=== PATIENT | female | born 1990 | race Caucasian/White ===

== ENCOUNTER 2016-11-11 19:44 | Outpatient (CLI) | payer MEDICAID, OTHER ==
[~2016-11-11] VITALS: Ht 154.9 cm; Wt 84.0 kg
[~2016-11-11 19:44] MED LIST: PRENATAL MEDS
[2016-11-11 20:32] VITALS: BP 127/79; PULSE 108; RESP 18
[2016-11-11] MEDS ORDERED: FERR134T PO (20:37)
[2016-11-11] MEDS ORDERED: PRENAT PO (20:37)
[2016-11-11] MEDS ORDERED: LACTATED RINGER'S 1,000 ML IV SCH (20:49)
[2016-11-11] MEDS ORDERED: BUTORPHANOL 2 MG INJ IV PRN (21:00)
[2016-11-11] MEDS ORDERED: IBUPROFEN 600 MG TAB PO PRN (21:00)
[2016-11-11] MEDS ORDERED: CARBOPROST 250 MCG INJ IM PRN (21:00)
[2016-11-11] MEDS ORDERED: METHYLERGONOVINE 0.2 MG INJ IM PRN (21:00)
[2016-11-11] MEDS ORDERED: MISOPROSTOL 200 MCG TAB PR PRN (21:00)
[2016-11-11] MEDS ORDERED: LIDOCAINE 1% (MPF) 30 ML INJ INJ PRN (21:00)
[2016-11-11] MEDS ORDERED: LACTATED RINGER'S 1,000 ML IV PRN (21:00)
[2016-11-11] MEDS ORDERED: OXYTOCIN 30 UNITS/LR 500 ML IV PRN (21:00)
[2016-11-11] MEDS ORDERED: OXYTOCIN 30 UNITS/LR 500 ML IV SCH ×2 (21:00)
[2016-11-11 21:37] LABS: ADD UMIC YES; URINE BILIRUBIN (Dip) NEGATIVE (NEGATIVE); URINE BLOOD (Dip) 1+ (NEGATIVE); URINE COLOR YELLOW (YELLOW); URINE GLUCOSE (Dip) NEGATIVE (NEGATIVE); URINE KETONES (Dip) TRACE (NEGATIVE); URINE LEUKOCYTE ESTERASE (Dip) NEGATIVE (NEGATIVE); URINE NITRITE (Dip) NEGATIVE (NEGATIVE); URINE TOTAL PROTEIN (Dip) NEGATIVE (NEGATIVE); URINE UROBILINOGEN (Dip) 0.2 E.U./dL (0.1-1.0)
[2016-11-11 21:54] LABS: BACTERIA,URINE MANY; SQUAMOUS EPITHELIAL CELL,UR MODERATE
[2016-11-11] MEDS ORDERED: TERBUTALINE 1 MG/ML INJ SC ONE (22:00)
--- NOTE | 2016-11-12 00:16 | QN ---
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 A1 with an IUP at 34w5d with c/o cramping and pelvic pressure for a few hours. No vaginal bleeding or leaking. PMHx: Gallstones. Anemia. PSHx: none. NKDA. BP 127/79 T= 99.0 NST:baseline 130-140 bpm with accels to 170 bpm. No decels. UC's q 10 minutes at most. U/A: not a clean catch with moderate epithelial cells and +bacteria. Specific gravity 1.025 and urine was dark. CX: closed/thick/high. After 3 large pitchers of water and a dose of SubQ terbutaline the pt reports feeling much better and is ready for d/c. A: IUP at 34w5d. False labor. P: D/C home. Encouraged to drink more water. Reviewed labor precautions with pt. PRASAD MAGAÑA MD Nov 12, 2016 00:16
--- NOTE | 2016-11-12 00:22 | TRIAGE ---
OB Triage Datetime Report Generated by CPN: 11/12/2016 00:22 Datetime: 11/11/2016 22:50 Labor Evaluation Frequency: q20-30 min Monitor Mode: External Quality: Mild Pattern: Normal: <= 5 Contractions in 10 Minutes Resting Tone [place]: Relaxed Heart Rate FHR Baseline Rate: 140 Monitor Mode: External US FHR Baseline Changes: No Baseline Change Variability: Moderate 6-25 bpm Accelerations: 15X15 Decelerations: None Category: Category I Pain Assessment Pain Scale: 5 Pain Presence: Intermittent Pain Type: Cramping Pain Location: Abdomen Pain Assessment Comments: Pt states she's feeling somewhat better Datetime: 11/11/2016 21:35 Quality: Mild Pattern: Normal: <= 5 Contractions in 10 Minutes Resting Tone [place]: Relaxed Heart Rate FHR Baseline Rate: 135 Monitor Mode: External US FHR Baseline Changes: No Baseline Change Variability: Moderate 6-25 bpm Accelerations: 15X15 Decelerations: None Category: Category I Datetime: 11/11/2016 20:50 Labor Evaluation Frequency: q30 Quality: Mild Pattern: Normal: <= 5 Contractions in 10 Minutes Resting Tone [place]: Relaxed Heart Rate FHR Baseline Rate: 140 Monitor Mode: External US FHR Baseline Changes: No Baseline Change Variability: Moderate 6-25 bpm Accelerations: 15X15 Decelerations: None Category: Category I Vaginal Exam Dilatation (cms): 0.0 Effacement (%): 0 Station: -4 Exam By: Elle Brock Membrane Status: Intact Vaginal Bleeding: None Cervix, Consistency: Moderate Cervix, Position: Posterior Datetime: 11/11/2016 20:35 Labor Evaluation Frequency: toco replaced Heart Rate FHR Baseline Rate: 130 Monitor Mode: External US FHR Baseline Changes: No Baseline Change Variability: Moderate 6-25 bpm Accelerations: 15X15 Decelerations: None Category: Category I Datetime: 11/11/2016 20:03 Time of Arrival: 11/11/2016 19:39 EGA: 34.5 Arrived By: Wheelchair Arrived From: Home Chief Complaint: w/ c/o cramping and pelvic pressure. Denies hx problems this Movement: Present Contractions: Irregular Time Contractions Began: 11/11/2016 14:40 Contractions: [id number] Rupture of Membranes: Denies Vaginal Bleeding: None Vaginal Discharge: Denies Recent Sexual Intercouse: Denies Abdominal Trauma: Not Applicable Patient Complaints: Cramping; Back Pain Time Provider Notified: 11/11/2016 21:35 Provider Notified: Dr Reiche Initial Plan: EFM Datetime: 11/11/2016 19:54 Maternal Assessment Level of Consciousness: Fully Conscious Headache: Denies Blurred Vision: No Nausea/Vomiting: Denies RUQ Epigastric Pain: Denies Facial Edema: None Labor Evaluation Frequency: placed Monitor Mode: External Resting Tone [place]: Relaxed Monitor Mode: External US Comments: FHT 140 Comments: FHT 135 Pain Assessment Pain Scale: 6 Pain Presence: Intermittent Pain Type: Cramping Pain Location: Abdomen
== END 2016-11-12 00:12 | disposition home or self-care (01) ==
LOC: OBT 19:44 → L-D 19:44 → OBT 11-12 00:12
PROVIDERS: ATTEND Obstetrics & Gynecology
DX: O60.03 Preterm labor without delivery, third trimester (principal); Z3A.34 34 weeks gestation of pregnancy
CPT/HCPCS: 81001; 96372; J3105; Z7500; 81003; G0463; J7120

== ENCOUNTER 2016-12-17 08:41 | Inpatient (IN) | payer OTHER ==
[2016-12-17] VITALS (10 sets, daily range): BP systolic 100–161; BP diastolic 51–90; PULSE 71–99; RESP 17–19; Ht 154.9 cm; Wt 85.8 kg
[~2016-12-17] VITALS: Ht 154.9 cm; Wt 85.8 kg
[~2016-12-17 08:41] MED LIST changes: +FERR134T PO; +PRENAT PO; -PRENATAL MEDS
[2016-12-17] MEDS ORDERED: AMPICILLIN 2 GM/NS (PMX) 100 ML IV ONE (10:00)
[2016-12-17] MEDS ORDERED: CARBOPROST 250 MCG INJ IM PRN ×2 (10:00→18:30)
[2016-12-17] MEDS ORDERED: METHYLERGONOVINE 0.2 MG INJ IM PRN ×2 (10:00→18:30)
[2016-12-17] MEDS ORDERED: MINERAL OIL LIGHT 10 ML VIAL TOP ONE (10:00)
[2016-12-17] MEDS ORDERED: LIDOCAINE 1% (MPF) 30 ML INJ INJ PRN (10:00)
[2016-12-17] MEDS ORDERED: MISOPROSTOL 200 MCG TAB PR PRN ×2 (10:00→18:30)
[2016-12-17] MEDS ORDERED: IBUPROFEN 600 MG TAB PO PRN (10:00)
[2016-12-17] MEDS ORDERED: OXYTOCIN 30 UNITS/LR 500 ML IV SCH ×2 (10:00)
[2016-12-17] MEDS ORDERED: BUTORPHANOL 2 MG INJ IV PRN (10:00)
[2016-12-17] MEDS ORDERED: OXYTOCIN 30 UNITS/LR 500 ML IV PRN ×2 (10:00→18:30)
[2016-12-17 10:05] LABS: ADD SCAN DIFF NO
[2016-12-17 10:12] LABS: BASOPHILS % 0.3 % (0.0-2.0); EOSINOPHILS # 0.1 10^3/ul (0.0-0.5); EOSINOPHILS % 1.6 % (0.0-7.0); HEMATOCRIT 32.4 % (37.0-47.0); HEMOGLOBIN 10.5 g/dl (12.0-16.0); LYMPHOCYTES # 1.7 10^3/ul (0.8-2.9); LYMPHOCYTES % 24.6 % (15.0-51.0); MEAN CORPUSCULAR HEMOGLOBIN 28.4 pg (29.0-33.0); MEAN CORPUSCULAR HGB CONC 32.4 g/dl (32.0-37.0); MEAN CORPUSCULAR VOLUME 87.6 fl (82.0-101.0); MEAN PLATELET VOLUME 10.3 fl (7.4-10.4); MONOCYTE # 0.6 10^3/ul (0.3-0.9); MONOCYTES % 8.1 % (0.0-11.0); NEUTROPHIL # 4.4 10^3/ul (1.6-7.5); NEUTROPHILS % 64.7 % (39.0-77.0); PLATELET COUNT 255 10^3/UL (140-415); WHITE BLOOD COUNT 6.8 10^3/ul (4.8-10.8)
[2016-12-17] MEDS: LACTATED RINGER'S 1,000 ML IV SCH ×2 (10:23→15:16)
[2016-12-17 10:56] LABS: INR 0.89; PT RATIO 0.9
[2016-12-17 10:57] LABS: PARTIAL THROMBOPLASTIN TIME 25.9 Sec (25.0-35.0)
[2016-12-17] MEDS ORDERED: LACTATED RINGER'S 1,000 ML IV PRN (12:00)
[2016-12-17] MEDS ORDERED: AMPICILLIN 1 GM/NS (PMX) 50 ML IV SCH (14:00)
[2016-12-17] MEDS ORDERED: BUTORPHANOL 2 MG INJ IV ONE (17:00)
--- NOTE | 2016-12-17 17:40 | LDN ---
Date/Time of Note Date/Time of Note DATE: 12/17/16 TIME: 17:38 Delivery Summary of a viable over intact perineum Weeks of Gestation 40 Placenta Delivered: Spontaneously, Intact & Complete Meconium: none Episiotomy: No Anesthesia type: None Estimated blood loss: 300 Sponge & Needle done & correct: Yes All needle counts correct: Yes Any foreign bodies felt in the: No Problems: Delivery Information Sex Infant Sex: female Apgars 1 Minute: 9 5 Minute: 9 Suctioning Nose & mouth suctioned at damaris: Yes Delee suction performed: No Umbilical Cord Umbilical cord with: 3 Vessels Cord presentations: no nuchal cord Cord Blood was obtained: Yes Mother & Baby Disposition Disposition Mom & Baby to Maternity; Good: Yes (mother and baby were recovered in good condition ) RENATE LARA MD Dec 17, 2016 17:40
--- NOTE | 2016-12-17 17:44 | HP ---
Date/Time of Note Date/Time of Note DATE: 12/17/16 TIME: 17:41 OB - History Hx of Present Free Text/Dictation admitted in active labor at term Chief Complaint: labor pains Last Menstrual Period: Mar 13, 2016 Estimated Due Date: Dec 19, 2016 : 5 Para: 3 Spontaneous : 1 Care: Good Care Ultrasounds: Normal mid trimester US Obstetrical Complications: None Medical Complications: None Past Family/Social History * Past Medical, Surgical, Family and Obstetric Histories reviewed from chart. Blood Type: B+ Rubella: immune RPR/VDRL: Negative GBS Status: Negative HBsAG: Negative OB Admission Exam Vital Signs Vital Signs Vital Signs Date Time Temp Pulse Resp B/P Pulse Ox O2 Delivery O2 Flow Rate FiO2 12/17/16 17:39 98.3 74 17 100/52 Room Air 12/17/16 08:47 99 Physical Exam HEENT: WNL Heart: Rhythm Normal Lungs: Clear, Equal Abdomen: WNL Extremities: Normal Reflexes: Normal Cervical Dilatation: 5cm Effacement: 100% Station: -3 Membranes: Intact Heart Rate: 140's Accelerations: Accelerations Present Decelerations: No Decelerations Varibility: Marked Contractions on Admission: < 5 Minutes Apart Date/Time Contractions Began: 12/17/2016 0700 AM Frequency of Contractions: q5 Duration: >60 seconds Intensity: Moderate Last 72 hours Lab Results CBC & BMP 12/17/16 09:00 OB Assessment/Plan Reason for admission: active labor Other Assessment: term gestation Other plan: proceed with labor RENATE LARA MD Dec 17, 2016 17:44
[2016-12-17] MEDS ORDERED: BENZOCAINE 20% 56 ML SPRAY TOP PRN (18:30)
[2016-12-17] MEDS ORDERED: ACETAMINOPHEN/CODEINE #3 TAB PO PRN ×2 (18:30)
[2016-12-17] MEDS ORDERED: WITCH HAZEL/GLYCERIN PAD PR PRN (18:30)
[2016-12-17] MEDS ORDERED: DIBUCAINE 1% 30 GM OINT PR PRN (18:30)
[2016-12-17] MEDS ORDERED: ZOLPIDEM 5 MG TAB PO PRN (18:30)
[2016-12-17] MEDS ORDERED: LANOLIN 7 GM TUBE TOP PRN (18:30)
[2016-12-17] MEDS: LACTATED RINGER'S 1,000 ML IV* SCH (19:47)
[2016-12-17] MEDS: MAGNESIUM HYDROXIDE 30ML CUP PO SCH (21:18)
[2016-12-17] MEDS: SENNA/DOCUSATE NA (8.6MG/50MG) TAB PO SCH (21:18)
[2016-12-17] MEDS: IBUPROFEN 600 MG TAB PO SCH (23:56)
[2016-12-18] VITALS (28 sets, daily range): BP systolic 114–139; BP diastolic 52–77; PULSE 77–104; RESP 14–28
[2016-12-18] MEDS: LACTATED RINGER'S 1,000 ML IV* SCH ×3 (02:25→11:26)
[2016-12-18] MEDS: IBUPROFEN 600 MG TAB PO SCH ×4 (05:30→23:30)
[2016-12-18] MEDS ORDERED: CEFAZOLIN 1 GM INJ ONE (07:00)
[2016-12-18 08:03] LABS: ADD SCAN DIFF NO
[2016-12-18 08:08] LABS: BASOPHILS % 0.2 % (0.0-2.0); EOSINOPHILS # 0.1 10^3/ul (0.0-0.5); EOSINOPHILS % 1.3 % (0.0-7.0); HEMATOCRIT 23.5 % (37.0-47.0); HEMOGLOBIN 7.8 g/dl (12.0-16.0); LYMPHOCYTES # 2.6 10^3/ul (0.8-2.9); LYMPHOCYTES % 30.4 % (15.0-51.0); MEAN CORPUSCULAR HEMOGLOBIN 29.7 pg (29.0-33.0); MEAN CORPUSCULAR HGB CONC 33.2 g/dl (32.0-37.0); MEAN CORPUSCULAR VOLUME 89.4 fl (82.0-101.0); MEAN PLATELET VOLUME 9.9 fl (7.4-10.4); MONOCYTE # 0.8 10^3/ul (0.3-0.9); MONOCYTES % 9.1 % (0.0-11.0); NEUTROPHIL # 4.9 10^3/ul (1.6-7.5); NEUTROPHILS % 58.3 % (39.0-77.0); PLATELET COUNT 215 10^3/UL (140-415); RED BLOOD COUNT 2.63 10^6/ul (4.20-5.40); RED CELL DISTRIBUTION WIDTH 14.1 % (11.5-14.5); WHITE BLOOD COUNT 8.5 10^3/ul (4.8-10.8)
[2016-12-18] MEDS: MAGNESIUM HYDROXIDE 30ML CUP PO SCH ×2 (09:00→21:00)
[2016-12-18] MEDS: SENNA/DOCUSATE NA (8.6MG/50MG) TAB PO SCH ×2 (09:00→21:00)
--- NOTE | 2016-12-18 14:10 | PN ---
Date/Time of Note Date/Time of Note DATE: 12/18/16 TIME: 14:09 Assessment/Plan VTE Prophylaxis VTE Prophylaxis Intervention: ambulation Lines/Catheters IV Catheter Type (from [email or web address] Peripheral IV Assessment/Plan Assessment/Plan PPD # 1 S/P vaginal delivery desires sterilization will proceed with BTL Subjective 24 Hr Interval Summary Free Text/Dictation desires BTL Constitutional: improved, no complaints Eyes: no complaints ENT: no complaints Respiratory: no complaints Cardiovascular: no complaints Gastrointestinal: no complaints Genitourinary: no complaints Musculoskeletal: no complaints Skin: no complaints Neurologic: no complaints Endocrine: no complaints Lymphatic: no complaints Psychological: nl mood/affect, no complaints Immunologic: no complaints Exam/Review of Systems Vital Signs Vitals Vital Signs Date Time Temp Pulse Resp B/P Pulse Ox O2 Delivery O2 Flow Rate FiO2 12/18/16 11:43 98.2 81 15 117/61 Room Air 12/17/16 08:47 99 Intake and Output 12/17/16 12/17/16 12/18/16 15:00 23:00 07:00 Intake Total 1550 ml 500 ml 1330 ml Output Total 550 ml 1100 ml 300 ml Balance 1000 ml -600 ml 1030 ml Exam fundus: firm Constitutional: alert, oriented, well developed Psych: nl mood/affect, no complaints Head: atraumatic, normocephalic Eyes: EOMI, PERRL, nl conjunctiva, nl lids, nl sclera ENMT: nl external ears & nose, nl lips & teeth, nl nasal mucosa & septum Neck: non-tender, supple Respiratory: clear to auscultation, normal air movement Cardiovascular: nl pulses, regular rate and rhythm Gastrointestinal: nl liver, spleen, non-tender, soft Genitourinary - Female: uterus (a U) Musculoskeletal: nl extremities to inspection, nl gait and stance Extremities: normal pulses 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, nl mental status, nl speech, nl strength Skin: nl turgor, No rash or lesions Lymph: nl lymph nodes Results Result Diagram: 12/18/16 0725 Results 24 hrs Laboratory Tests Test 12/18/16 07:25 White Blood Count 8.5 # Red Blood Count 2.63 #L Hemoglobin 7.8 #L Hematocrit 23.5 #L Mean Corpuscular Volume 89.4 Mean Corpuscular Hemoglobin 29.7 Mean Corpuscular Hemoglobin Concent 33.2 Red Cell Distribution Width 14.1 Platelet Count 215 Mean Platelet Volume 9.9 Neutrophils % 58.3 Lymphocytes % 30.4 Monocytes % 9.1 Eosinophils % 1.3 Basophils % 0.2 Nucleated Red Blood Cells % 0.0 Neutrophils # 4.9 Lymphocytes # 2.6 Monocytes # 0.8 Eosinophils # 0.1 Basophils # 0.0 Nucleated Red Blood Cells # 0.0 Medications Medications Current Medications Lactated Ringer's (Lr) 1,000 ml @ 125 mls/hr Q8H IV* Last administered on 12/18 11:26; Admin Dose 125 MLS/HR; Start 12/17/16 at 18:25 Ibuprofen (Motrin) 600 mg Q6 PO Last administered on 12/17/16 23:56; Admin Dose 600 MG; Start 12/18/16 at 00:00 Acetaminophen/ Codeine Phosphate (Tylenol No.3) 1 tab Q4H PRN PO PAIN LEVEL 1-5 ; Start 12/17/16 at 18:30 Acetaminophen/ Codeine Phosphate (Tylenol No.3) 2 tab Q4H PRN PO PAIN LEVEL 6- 10; Start 12/17/16 at 18:30 Zolpidem Tartrate (Ambien) 5 mg QHS PRN PO INSOMNIA; Start 12/17/16 at 18:30 Senna/Docusate Sodium (Senokot-S) 1 tab BID PO Last administered on 12/17/16 21:18; Admin Dose 1 TAB; Start 12/17/16 at 21:00 Magnesium Hydroxide (Milk Of Mag) 30 ml Q12 PO Last administered on 12/17/16 21:18; Admin Dose 30 ML; Start 12/17/16 at 21:00 Measles/Mumps/ Rubella Vaccine Live (Mmr Ii Vaccine) 0.5 ml ONCE ONCE SC* ; Start 12/19/16 at 09:00; Stop 12/19/16 at 09:01 Diphtheria/ Tetanus/Acell Pertussis (Adacel) 0.5 ml ONCE ONCE IM* ; Start at 09:00; Stop 12/19/16 at 09:01 Varicella Virus Vaccine Live 1350 unit 1,350 unit ONCE ONCE SC* ; Start at 09:00; Stop 12/19/16 at 09:01 Oxytocin/Lactated Ringer's 500 ml @ 0 mls/hr ONCE PRN IV For Hemorrhage Management; Start 12/17/16 at 18:30 Methylergonovine Maleate (Methergine) 0.2 mg ONCE PRN IM VAGINAL BLEEDING; Start 12/17/16 at 18:30 Carboprost Tromethamine (Hemabate) 250 mcg ONCE PRN IM VAGINAL BLEEDING; Start 12/17/16 at 18:30 Misoprostol (Cytotec) 1,000 mcg ONCE PRN AR VAGINAL BLEEDING; Start 12/17/16 at 18:30 RENATE LARA MD Dec 18, 2016 14:10
[2016-12-18] MEDS ORDERED: BUPIVACAINE 0.25%/EPI (SDV) 30 ML INJ ONE (17:23)
[2016-12-18] MEDS ORDERED: ONDANSETRON 4 MG INJ IV PRN (17:30)
[2016-12-18] MEDS ORDERED: MEPERIDINE 25 MG INJ IV PRN (17:30)
[2016-12-18] MEDS ORDERED: DIPHENHYDRAMINE 50 MG INJ IV PRN (17:30)
[2016-12-18] MEDS ORDERED: FENTAnyl 50 MCG/ML VIAL IV PRN (17:30)
[2016-12-18] MEDS ORDERED: HYDROmorphONE (0.2 MG/ML) 10ML SYG IV PRN (17:30)
[2016-12-18] MEDS ORDERED: PROCHLORPERAZINE 10 MG INJ IV PRN (17:30)
[2016-12-18] MEDS ORDERED: MIDAZOLAM 1 MG/ML 2 ML INJ ONE (17:34)
[2016-12-18] MEDS ORDERED: FENTAnyl 50 MCG/ML VIAL ONE (17:44)
[2016-12-18] MEDS ORDERED: KETOROLAC 60 MG INJ IM STA (18:32)
--- NOTE | 2016-12-18 18:36 | PD.PPDC ---
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
[2016-12-18] MEDS ORDERED: IBUP-1542 PO (18:37)
--- NOTE | 2016-12-18 18:41 | DS ---
Date/Time of Note Date/Time of Note home next day DATE: 12/18/16 TIME: 18:40 Obstetrical Discharge Record Final Diagnosis Final Diagnosis: Term delivered Other Final Diagnosis S/P Vaginal delivery and BTL Vaginal Delivery Obstetrical Delivery: Spontaneous, Bilateral Tubal Ligation Condition on Discharge Physical Assessment Last Vitals: see nurses notes Voiding: Yes Bowel Movement: Yes Breast: Soft, non-tender, Filling Fundus: Firm Abdomen and Incision: soft BS + incision : new Episiotomy: NA Calf Tenderness: No Patient Condition: Good RENATE LARA MD Dec 18, 2016 18:41
--- NOTE | 2016-12-18 18:43 | OPR ---
Operative Report Planned Procedure Procedure date Dec 18, 2016 Procedure(s) bilateral tubal ligation Performed by: RENATE LARA MD Anesthesiologist: LEIDY CONNOR MD Pre-procedure diagnosis multiparity with desire for sterilization Anesthesia Type: spinal Procedure Description The patient was placed on the OR table in supine position. Spinal anesthesia was placed. A Pastor catheter was then inserted into urinary bladder under aseptic condition. After induction of spinal anesthesia, with the patient in supine position, abdominal area was prepped and draped for usual tubal ligation procedure. Under satisfactory anesthesia, a small incision 2 to 3 cm in length was placed just below belly button, incision extended laterally to 1.5 cm lateral to the linea nigra on either side. Incision was carried down with sharp and blunt dissection until fascia was reached. Anterior recti muscle fascia was incised in the midportion. Incision extended laterally to the border of the skin incision. Peritoneum was visualized. Avoiding bowel or bladder, incision was made in peritoneum, which was extended laterally to the border of the skin incision. Two [place] retractors were placed inside the incision. Incision was brought up to the level of the left fallopian tube. Fallopian tube was raised in the mid portion. A clamp was placed below the fimbriated end, most of the fallopian tube from the mesosalpinx traversing the isthmus portion of the tube. Another clamp was placed just below the first and 0 Vicryl tie was used to tie the mesosalpinx and the stump of the fallopian tube on the proximal side. Another stitch of the same kind was used for adequate hemostasis. Hemostasis appeared to be secure on ligated sites of the fallopian tube. Tube was incised above the stitched area. Same procedure was done on the fallopian tube on opposite side. Hemostasis appeared to be secure on ligated sites of either fallopian tubes. Ovaries were within normal limits. Uterus appears to be size. Announcing needle, lap, sponge and instrument count to be correct, abdomen was closed in layers as follows: Peritoneum with running stitches of #1 Vicryl, fascia edges of #1 Vicryl, subcutaneous tissue with running stitches of #1 Vicryl, and skin was reapproximated using subcuticular stitches of 4-0 Monocryl on a PS2 needle and also Dermabond was placed on the incision. The patient tolerated the procedure very well and was transferred to postanesthesia recovery room in stable and good condition. ESTIMATED BLOOD LOSS: Less than 5 mL. Post-Procedure Post-procedure diagnosis S/P BTL Findings: Normal R and L fallopian tubes Specimen removed: Yes Specimen description segments of R and L fallopian tubes Complications: None Pt Condition post procedure: stable Disposition: PACU Physician Certification I, the undersigned physician, hereby certify that I have discussed the procedure described in this consent form with this patient (or the patient's legal payable representative), including: * The risk and benefits of the procedure; * Any adverse reactions that may reasonably be expected to occur; * Any alternative efficacious methods of treatment which may be medically viable ; * The potential problems that may occur during recuperation; * Potential for blood transfusion and associated risks/benefits; and * Any research or economic interest I may have regarding this treatment. I further certify that the patient/legally responsible person was encouraged to ask question and that all questions were answered. RENATE LARA MD Dec 18, 2016 18:43
[2016-12-18] MEDS ORDERED: CEFAZOLIN 2 GM/50 ML (PMX) 50 ML IVPB ONE (19:00)
[2016-12-18] MEDS ORDERED: BUTORPHANOL 2 MG INJ IM ONE (19:00)
[2016-12-18] MEDS: LACTATED RINGER'S 1,000 ML IV SCH (19:58)
[2016-12-18] MEDS ORDERED: KETOROLAC 30 MG INJ ONE (20:13)
[2016-12-18] MEDS: CEPHALEXIN 500 MG CAP PO SCH (23:30)
[2016-12-19 03:51] VITALS: BP 130/70; PULSE 72; RESP 20
[2016-12-19] MEDS: LACTATED RINGER'S 1,000 ML IV SCH (04:32)
[2016-12-19] MEDS: CEPHALEXIN 500 MG CAP PO SCH ×3 (05:30→12:28)
[2016-12-19] MEDS: IBUPROFEN 600 MG TAB PO SCH ×2 (05:30→11:40)
[2016-12-19 08:00] VITALS: BP 127/68; PULSE 82; RESP 18
[2016-12-19] MEDS ORDERED: DIPHTH/TET/ACEL PERTUSS (ADULT) 0.5 ML VIAL IM* ONE (09:00)
[2016-12-19] MEDS ORDERED: MEASLES,MUMPS,RUBELLA VACCINE INJ SC* ONE (09:00)
[2016-12-19] MEDS ORDERED: VARICELLA VACCINE LIVE/PF 1,350 UNIT/0.5 ML ML SC* ONE (09:00)
[2016-12-19] MEDS: MAGNESIUM HYDROXIDE 30ML CUP PO SCH (09:15)
[2016-12-19] MEDS: SENNA/DOCUSATE NA (8.6MG/50MG) TAB PO SCH (09:15)
== END 2016-12-19 13:40 | disposition home or self-care (01) | DRG 767 ==
LOC: OBT 08:41 → L-D 08:41 → OBT 09:09 → L-D 09:11 → PP1 18:06
PROVIDERS: ADMIT Obstetrics & Gynecology; ATTEND Obstetrics & Gynecology
PROC: 0U570ZZ Destruction of Bilateral Fallopian Tubes, Open Approach (ICD-10-PCS; 2016-12-18)
PROC: 10E0XZZ Delivery of Products of Conception, External Approach (ICD-10-PCS; principal; 2016-12-18 17:00)
DX: O80 Encounter for full-term uncomplicated delivery (principal); Z30.2 Encounter for sterilization; Z3A.40 40 weeks gestation of pregnancy; Z37.0 Single live birth
CPT/HCPCS: 85025; 85610; 85730; 86592; 86900; 86901; 88302; 90715; 90716; G0463; J0690; J1885; J2250; J2590; J3010; J7120